=== PATIENT | male | born 1965 | race Caucasian/White ===

== ENCOUNTER → 2021-10-10 | Outpatient (CLI) | payer OTHER, SELFPAY | END | disposition home or self-care (01) | LOC: LABSPEC 10:29 | PROVIDERS: Referring Provider Dermatology; Visit Provider Dermatology | DX: L57.0 Actinic keratosis (principal); L02.425 Furuncle of right lower limb; L21.8 Other seborrheic dermatitis | CPT/HCPCS: 87070; 87077; 87186; 87205 ==